=== PATIENT | male | born 1995 | race African-American/Black ===

== ENCOUNTER 2017-06-27 15:24 | Emergency (ER) | payer SELFPAY ==
[2017-06-27 15:46] LABS: Bilirubin Negative (Negative); Blood, Urine Negative (Negative); Glucose, Urine (Dipstick) Negative (Negative); Ketone, Urine Negative (Negative); Nitrite Negative (Negative); Protein, Urine (Dipstick) Negative (Neg-Trace)
[2017-06-27 15:48] LABS: Bacteria/HPF None Seen HPF (None Seen); Hyaline Casts/LPF 7-10 HYALINE CAST LPF (0-3 Hyaline); Squamous Epithelial 0-3 HPF (0-3)
[2017-06-27] MEDS ORDERED: Lidocaine 1% (PF) 30 ML VIAL ONE (16:39)
[2017-06-27] MEDS ORDERED: Azithromycin 250 MG TAB ONE (16:39)
[2017-06-27] MEDS ORDERED: cefTRIAXone\\ROCEPHIN 250 MG VIAL ONE (16:39)
== END 2017-06-27 17:14 | disposition home or self-care (01) ==
LOC: ERS 15:24
DX: N39.0 Urinary tract infection, site not specified (principal); A64 Unspecified sexually transmitted disease
CPT/HCPCS: 81003; 81015; 87491; 87591; 96372; J0696; J2001

== ENCOUNTER 2018-10-21 19:40 | Emergency (ER) | payer SELFPAY ==
[2018-10-21 21:05] LABS: #Basophils 0.1 thou/uL (0.0-0.2); #Eosinphils 0.1 thou/uL (0.0-0.7); #Lymphocytes 1.4 thou/uL (1.20-3.40); #Monocytes 0.5 thou/uL (0.11-0.59); %Eosinophils 1.6 % (0.0-10.0); %Lymphocytes 27.4 % (21.0-51.0); %Monocytes 9.4 % (0.0-10.0); %Neutrophils 60.6 % (42.0-75.0); Hemoglobin 15.4 g/dL (14.0-18.0); Mean Corpuscular HGB CONC 32.8 g/dL (32.0-36.0); Mean Platelet Volume 6.4 fL (7.4-10.4); Platelet Count 231 thou/uL (130-400); RBC Distribution Width 11.9 % (11.5-14.5); Red Blood Cell (RBC) Count 4.67 mill/uL (4.70-6.10); White Blood Cell (WBC) Count 4.9 thou/uL (4.8-10.8)
[2018-10-21 21:24] LABS: Anion Gap 15 mmol/L (10-20); BUN (Urea Nitrogen) 10 mg/dL (8.9-20.6); CK (CPK) 349 U/L (30-200); Calc. Creatinine Clearance 0 mL/min (70-130); Calcium 10.2 mg/dL (7.8-10.44); Carbon Dioxide 27 mmol/L (22-29); Chloride 99 mmol/L (98-107); Estimated GFR-MDRD Greater than 90; Glucose 110 mg/dL (70-105); Potassium 3.6 mmol/L (3.5-5.1); Sodium 137 mmol/L (136-145)
== END 2018-10-21 21:40 | disposition home or self-care (01) ==
LOC: ERS 19:40
DX: F41.9 Anxiety disorder, unspecified (principal); R42 Dizziness and giddiness
CPT/HCPCS: 36415; 80048; 82550; 84443; 85025; 93005

== ENCOUNTER 2020-05-19 12:53 | Emergency (ER) | payer SELFPAY ==
[2020-05-19 13:29] LABS: Bilirubin Negative (Negative); Blood, Urine 1+ (Negative); Clarity Turbid (Clear); Glucose, Urine (Dipstick) Normal (Negative); Ketone, Urine Negative (Negative); Leukocyte 500 Leu/uL (Negative); Nitrite Negative (Negative); Protein, Urine (Dipstick) 30 mg/dL (Neg-Trace); Specific Gravity, Urine 1.019 (1.002-1.036); Squamous Epithelial None Seen HPF (0-3); Urobilinogen Normal mg/dL (Less than 2); WBC/HPF Greater than 50 HPF (0-3)
[2020-05-19 13:38] LABS: Bacteria/HPF None Seen HPF (None Seen); RBC/HPF 0-3 HPF (0-3)
[2020-05-19] MEDS ORDERED: cloNIDine 0.1 MG TAB ONE (14:42)
[2020-05-19] MEDS ORDERED: cefTRIAXone\\ROCEPHIN 250 MG VIAL ONE (14:42)
[2020-05-19] MEDS ORDERED: Lidocaine 1% PF 5 ML VIAL ONE (14:43)
[2020-05-19] MEDS ORDERED: Azithromycin 250 MG TAB ONE (14:56)
[2020-05-23 20:53] LABS: Chlam.trachomatis by PCR,Urine Inconclusive (NotDetected)
== END 2020-05-19 15:22 | disposition home or self-care (01) ==
LOC: ERS 12:53
DX: N34.1 Nonspecific urethritis (principal); F17.210 Nicotine dependence, cigarettes, uncomplicated
CPT/HCPCS: 81003; 81015; 87086; 87491; 87591; 96372; 99283; J0696

== ENCOUNTER 2020-05-25 14:16 | Emergency (ER) | payer SELFPAY ==
[2020-05-25] MEDS ORDERED: Boostrix 0.5 ML VIAL ONE (14:57)
== END 2020-05-25 15:18 | disposition home or self-care (01) ==
LOC: ERS 14:16
DX: S01.21XA Laceration without foreign body of nose, initial encounter (principal); Z23 Encounter for immunization; F17.210 Nicotine dependence, cigarettes, uncomplicated; Y04.0XXA Assault by unarmed brawl or fight, initial encounter
CPT/HCPCS: 90471; 90715

== ENCOUNTER 2021-01-20 09:15 | Emergency (ER) | payer SELFPAY | END 2021-01-20 10:01 | disposition home or self-care (01) | LOC: ERS 09:15 | DX: Z20.2 Contact with and (suspected) exposure to infections with a predominantly sexual mode of transmission (principal); F17.210 Nicotine dependence, cigarettes, uncomplicated | CPT/HCPCS: 99281 ==

== ENCOUNTER 2021-12-16 15:01 | Inpatient (IN) | payer SELFPAY ==
[~2021-12-16 15:01] MED LIST: Iopamidol-370 76% 500 ML 1 ML ONE
[2021-12-16 15:31] LABS: #Eosinphils 0.3 thou/uL (0.0-0.7); #Lymphocytes 1.6 thou/uL (1.20-3.40); #Monocytes 1.2 thou/uL (0.11-0.59); #Neutrophils 7.7 thou/uL (1.40-6.50); %Basophils 0.4 % (0.0-1.0); %Eosinophils 2.8 % (0.0-10.0); %Lymphocytes 14.8 % (21.0-51.0); %Monocytes 10.8 % (0.0-10.0); %Neutrophils 71.2 % (42.0-75.0); Hemoglobin 18.2 g/dL (14.0-18.0); Mean Corpuscular HGB CONC 34.6 g/dL (32.0-36.0); Mean Platelet Volume 7.6 fL (7.4-10.4); Platelet Count 222 thou/uL (130-400); RBC Distribution Width 13.5 % (11.5-14.5); Red Blood Cell (RBC) Count 5.04 mill/uL (4.70-6.10); White Blood Cell (WBC) Count 10.8 thou/uL (4.8-10.8)
[2021-12-16] MEDS ORDERED: Morphine 4 MG/ML VIAL ONE ×2 (16:20→17:27)
[2021-12-16] MEDS ORDERED: Ondansetron PF 4 MG/2 ML Vial ONE (16:20)
[2021-12-16 16:26] LABS: ALT (SGPT) 78 U/L (8-55); AST (SGOT) 77 U/L (5-34); Albumin 5.1 g/dL (3.5-5.0); Alkaline Phosphatase 77 U/L (40-110); Anion Gap 22 mmol/L (10-20); BUN (Urea Nitrogen) 4 mg/dL (8.9-20.6); Bilirubin, Total 1.8 mg/dL (0.2-1.2); Calc. Creatinine Clearance 0 mL/min (70-130); Calcium 10.7 mg/dL (7.8-10.44); Carbon Dioxide 22 mmol/L (22-29); Chloride 93 mmol/L (98-107); Globulin 3.5 g/dL (2.4-3.5); Glucose 106 mg/dL (70-105); Lipase 745 U/L (8-78); Potassium 4.4 mmol/L (3.5-5.1); Protein, Total 8.6 g/dL (6.0-8.3); Sodium 133 mmol/L (136-145)
[2021-12-16 17:04] LABS: Bacteria/HPF None Seen HPF (None Seen); Bilirubin Negative (Negative); Blood, Urine Trace (Negative); Clarity Clear (Clear); Glucose, Urine (Dipstick) Normal (Negative); Ketone, Urine 80 mg/dL (Negative); Leukocyte 75 Leu/uL (Negative); Nitrite Negative (Negative); Protein, Urine (Dipstick) Negative (Neg-Trace); RBC/HPF 0-3 HPF (0-3); Specific Gravity, Urine 1.043 (1.002-1.036); Squamous Epithelial None Seen HPF (0-3); Urobilinogen Normal mg/dL (Less than 2); pH, Urine 6.5 (5.0-9.0)
[2021-12-16] MEDS ORDERED: hydrALAZINE 20 MG/ML VIAL SLOW IVP PRN (19:35)
[2021-12-16] MEDS: Morphine 2 MG/ML VIAL SLOW IVP PRN ×2 (20:05→23:56)
[2021-12-16] MEDS: Sodium Chloride 0.9% 1,000 ML IV SCH (20:12)
[2021-12-16] MEDS: Famotidine/PF 20 mg/2ml Vial SLOW IVP SCH (21:06)
[2021-12-16] MEDS: Nicotine 14 MG PATCH TD SCH (21:06)
[2021-12-16] MEDS: Ondansetron PF 4 MG/2 ML Vial IVP PRN (21:08)
[2021-12-16 21:21] VITALS: BMI 22.3
[2021-12-17] MEDS: cefTRIAXone\\ROCEPHIN 1 GM in Sodium Chloride 0.9% 100 ML IVPB SCH (01:41)
[2021-12-17] MEDS: Morphine 2 MG/ML VIAL SLOW IVP PRN ×5 (04:06→20:32)
[2021-12-17] MEDS: Sodium Chloride 0.9% 1,000 ML IV SCH ×3 (05:00→20:36)
[2021-12-17 06:50] LABS: ALT (SGPT) 52 U/L (8-55); AST (SGOT) 47 U/L (5-34); Albumin 3.9 g/dL (3.5-5.0); Alkaline Phosphatase 59 U/L (40-110); Anion Gap 15 mmol/L (10-20); BUN (Urea Nitrogen) 4 mg/dL (8.9-20.6); BUN/Creatinine Ratio 5.13; Bilirubin, Total 1.1 mg/dL (0.2-1.2); Calc. Creatinine Clearance 153 mL/min (70-130); Calcium 9.1 mg/dL (7.8-10.44); Carbon Dioxide 25 mmol/L (22-29); Chloride 99 mmol/L (98-107); Glucose 91 mg/dL (70-105); Lipase 319 U/L (8-78); Phosphorus 2.7 mg/dL (2.3-4.7); Protein, Total 6.9 g/dL (6.0-8.3); Sodium 135 mmol/L (136-145)
[2021-12-17 08:15] LABS: Cardiac Risk 2.4 (Less than 4.5)
[2021-12-17] MEDS: Enoxaparin Sodium 40 MG/0.4 ML SYRINGE SC SCH (08:21)
[2021-12-17] MEDS: Famotidine/PF 20 mg/2ml Vial SLOW IVP SCH ×2 (08:21→20:31)
[2021-12-17] MEDS: Ondansetron PF 4 MG/2 ML Vial IVP PRN (12:36)
[2021-12-17 16:11] LABS: SARS-CoV-2 PCR by NAA Not Detected (NotDetected)
[2021-12-17] MEDS: Nicotine 14 MG PATCH TD SCH (20:07)
[2021-12-17] MEDS: Lorazepam 2 MG/ML VIAL SLOW IVP PRN (23:48)
[2021-12-18] MEDS: cefTRIAXone\\ROCEPHIN 1 GM in Sodium Chloride 0.9% 100 ML IVPB SCH (01:37)
[2021-12-18] MEDS: Ondansetron PF 4 MG/2 ML Vial IVP PRN (01:40)
[2021-12-18] MEDS: Morphine 2 MG/ML VIAL SLOW IVP PRN ×4 (01:40→20:01)
[2021-12-18] MEDS: Sodium Chloride 0.9% 1,000 ML IV SCH ×2 (05:25→14:19)
[2021-12-18 07:28] LABS: ALT (SGPT) 46 U/L (8-55); AST (SGOT) 58 U/L (5-34); Albumin 3.7 g/dL (3.5-5.0); Alkaline Phosphatase 52 U/L (40-110); Anion Gap 16 mmol/L (10-20); BUN (Urea Nitrogen) Less than 4 mg/dL (8.9-20.6); Bilirubin, Total 0.9 mg/dL (0.2-1.2); Calc. Creatinine Clearance 171 mL/min (70-130); Calcium 9.2 mg/dL (7.8-10.44); Carbon Dioxide 24 mmol/L (22-29); Chloride 100 mmol/L (98-107); Globulin 2.8 g/dL (2.4-3.5); Glucose 86 mg/dL (70-105); Potassium 3.7 mmol/L (3.5-5.1); Protein, Total 6.5 g/dL (6.0-8.3); Sodium 136 mmol/L (136-145)
[2021-12-18] MEDS: Famotidine/PF 20 mg/2ml Vial SLOW IVP SCH ×2 (08:00→20:01)
[2021-12-18] MEDS: Enoxaparin Sodium 40 MG/0.4 ML SYRINGE SC SCH (08:00)
[2021-12-18 08:21] LABS: #Eosinphils 0.5 thou/uL (0.0-0.7); #Lymphocytes 1.8 thou/uL (1.20-3.40); #Monocytes 0.7 thou/uL (0.11-0.59); %Basophils 0.3 % (0.0-1.0); %Eosinophils 7.7 % (0.0-10.0); %Lymphocytes 29.7 % (21.0-51.0); %Monocytes 11.8 % (0.0-10.0); %Neutrophils 50.5 % (42.0-75.0); Hemoglobin 13.9 g/dL (14.0-18.0); Mean Corpuscular HGB CONC 32.7 g/dL (32.0-36.0); Mean Corpuscular Hemoglobin 34.8 pg (27.0-31.0); Mean Platelet Volume 6.6 fL (7.4-10.4); Platelet Count 199 thou/uL (130-400); RBC Distribution Width 12.7 % (11.5-14.5); Red Blood Cell (RBC) Count 3.99 mill/uL (4.70-6.10); White Blood Cell (WBC) Count 5.9 thou/uL (4.8-10.8)
[2021-12-18 08:39] LABS: MDiff Complete? YES; Macrocytosis SLIGHT = 6-15 cells (100X) (0-5/hpf); Platelet Morphology Comment Appears Adequate
[2021-12-18] MEDS: Nicotine 14 MG PATCH TD SCH (20:02)
[2021-12-18] MEDS: Lorazepam 2 MG/ML VIAL SLOW IVP PRN (21:33)
[2021-12-19] MEDS: Sodium Chloride 0.9% 1,000 ML IV SCH ×2 (01:08→09:17)
[2021-12-19] MEDS: cefTRIAXone\\ROCEPHIN 1 GM in Sodium Chloride 0.9% 100 ML IVPB SCH (01:08)
[2021-12-19] MEDS: Morphine 2 MG/ML VIAL SLOW IVP PRN (01:10)
[2021-12-19] MEDS: Lorazepam 2 MG/ML VIAL SLOW IVP PRN (03:33)
[2021-12-19 07:37] VITALS: BP 132/82; TEMP 98
[2021-12-19 08:18] LABS: #Basophils 0.1 thou/uL (0.0-0.2); #Eosinphils 0.4 thou/uL (0.0-0.7); #Lymphocytes 1.5 thou/uL (1.20-3.40); #Monocytes 0.7 thou/uL (0.11-0.59); #Neutrophils 2.1 thou/uL (1.40-6.50); %Basophils 1.3 % (0.0-1.0); %Lymphocytes 30.9 % (21.0-51.0); %Monocytes 14.5 % (0.0-10.0); %Neutrophils 45.3 % (42.0-75.0); Hemoglobin 13.7 g/dL (14.0-18.0); Mean Corpuscular HGB CONC 33.3 g/dL (32.0-36.0); Mean Corpuscular Hemoglobin 35.1 pg (27.0-31.0); Mean Platelet Volume 6.6 fL (7.4-10.4); Platelet Count 237 thou/uL (130-400); RBC Distribution Width 12.7 % (11.5-14.5); Red Blood Cell (RBC) Count 3.91 mill/uL (4.70-6.10); White Blood Cell (WBC) Count 4.7 thou/uL (4.8-10.8)
[2021-12-19 08:37] LABS: ALT (SGPT) 68 U/L (8-55); AST (SGOT) 98 U/L (5-34); Albumin 3.6 g/dL (3.5-5.0); Alkaline Phosphatase 51 U/L (40-110); Anion Gap 14 mmol/L (10-20); BUN (Urea Nitrogen) 4 mg/dL (8.9-20.6); Bilirubin, Total 0.7 mg/dL (0.2-1.2); Calc. Creatinine Clearance 171 mL/min (70-130); Calcium 8.9 mg/dL (7.8-10.44); Carbon Dioxide 24 mmol/L (22-29); Chloride 102 mmol/L (98-107); Globulin 2.7 g/dL (2.4-3.5); Glucose 103 mg/dL (70-105); Potassium 3.4 mmol/L (3.5-5.1); Protein, Total 6.3 g/dL (6.0-8.3); Sodium 137 mmol/L (136-145)
[2021-12-19] MEDS: Famotidine/PF 20 mg/2ml Vial SLOW IVP SCH (08:54)
[2021-12-19] MEDS: Enoxaparin Sodium 40 MG/0.4 ML SYRINGE SC SCH (08:54)
[2021-12-19] MEDS ORDERED: Electrolyte Replacement Protocol 1 EACH FS SCH (09:00)
[2021-12-19] MEDS ORDERED: Potassium Chloride 20 MEQ TAB PO SCH (09:15)
[2021-12-19 10:18] LABS: Lipase 82 U/L (8-78); Magnesium 1.9 mg/dL (1.6-2.6)
[2021-12-19] MEDS ORDERED: Magnesium 2 GM/50 ML(in water) 2 GM in Premix Bag 1 BAG IVPB SCH (10:30)
== END 2021-12-19 14:53 | disposition home or self-care (01) | DRG 439 ==
LOC: ERS 15:01 → T4-A 18:32
PROVIDERS: ADMIT Internal Medicine; ATTEND Internal Medicine
DX: K85.20 Alcohol induced acute pancreatitis without necrosis or infection (principal); E87.1 Hypo-osmolality and hyponatremia; N30.00 Acute cystitis without hematuria; F17.210 Nicotine dependence, cigarettes, uncomplicated; F10.10 Alcohol abuse, uncomplicated; E83.52 Hypercalcemia; E86.0 Dehydration; Z20.822 Contact with and (suspected) exposure to COVID-19; Z98.890 Other specified postprocedural states
CPT/HCPCS: 36415; 71045; 74177; 80053; 80061; 80069; 81003; 81015; 83690; 83735; 85025; 96374; 96375; 96376; J0696; J1650; J2060; J2270; J2405; J3475; J3490; J7050; Q9967; S0028; U0003; U0005

== ENCOUNTER 2021-12-21 03:52 | Emergency (ER) | payer SELFPAY ==
[2021-12-21 05:18] LABS: #Basophils 0.1 thou/uL (0.0-0.2); #Eosinphils 0.2 thou/uL (0.0-0.7); #Lymphocytes 1.8 thou/uL (1.20-3.40); #Monocytes 0.6 thou/uL (0.11-0.59); #Neutrophils 1.9 thou/uL (1.40-6.50); %Basophils 1.4 % (0.0-1.0); %Eosinophils 5.3 % (0.0-10.0); %Lymphocytes 39.1 % (21.0-51.0); %Monocytes 11.9 % (0.0-10.0); %Neutrophils 42.3 % (42.0-75.0); Hemoglobin 14.8 g/dL (14.0-18.0); Mean Corpuscular HGB CONC 33.7 g/dL (32.0-36.0); Mean Corpuscular Hemoglobin 34.8 pg (27.0-31.0); Mean Platelet Volume 6.2 fL (7.4-10.4); Platelet Count 287 thou/uL (130-400); RBC Distribution Width 12.5 % (11.5-14.5); Red Blood Cell (RBC) Count 4.26 mill/uL (4.70-6.10); White Blood Cell (WBC) Count 4.6 thou/uL (4.8-10.8)
[2021-12-21 05:38] LABS: ALT (SGPT) 141 U/L (8-55); AST (SGOT) 154 U/L (5-34); Alkaline Phosphatase 49 U/L (40-110); Anion Gap 12 mmol/L (10-20); BUN (Urea Nitrogen) Less than 4 mg/dL (8.9-20.6); Bilirubin, Total 0.6 mg/dL (0.2-1.2); Calc. Creatinine Clearance 0 mL/min (70-130); Calcium 9.3 mg/dL (7.8-10.44); Carbon Dioxide 25 mmol/L (22-29); Chloride 104 mmol/L (98-107); Globulin 2.9 g/dL (2.4-3.5); Glucose 99 mg/dL (70-105); Lipase 118 U/L (8-78); Potassium 3.6 mmol/L (3.5-5.1); Protein, Total 6.9 g/dL (6.0-8.3); Sodium 137 mmol/L (136-145)
== END 2021-12-21 06:00 | disposition home or self-care (01) ==
LOC: ERS 03:52
DX: R55 Syncope and collapse (principal); F17.210 Nicotine dependence, cigarettes, uncomplicated
CPT/HCPCS: 36415; 80053; 83690; 85025; 93005

== ENCOUNTER 2021-12-21 17:32 | Emergency (ER) | payer SELFPAY ==
[2021-12-21] MEDS ORDERED: Ondansetron PF 4 MG/2 ML Vial ONE (17:51)
[2021-12-21 18:35] LABS: #Eosinphils 0.2 thou/uL (0.0-0.7); #Lymphocytes 1.9 thou/uL (1.20-3.40); #Monocytes 0.7 thou/uL (0.11-0.59); #Neutrophils 2.4 thou/uL (1.40-6.50); %Basophils 0.9 % (0.0-1.0); %Eosinophils 3.4 % (0.0-10.0); %Lymphocytes 35.7 % (21.0-51.0); Hemoglobin 14.4 g/dL (14.0-18.0); Mean Corpuscular HGB CONC 32.8 g/dL (32.0-36.0); Mean Corpuscular Hemoglobin 34.2 pg (27.0-31.0); Mean Platelet Volume 6.6 fL (7.4-10.4); Platelet Count 286 thou/uL (130-400); RBC Distribution Width 12.6 % (11.5-14.5); Red Blood Cell (RBC) Count 4.22 mill/uL (4.70-6.10); White Blood Cell (WBC) Count 5.2 thou/uL (4.8-10.8)
[2021-12-21 18:59] LABS: ALT (SGPT) 148 U/L (8-55); AST (SGOT) 134 U/L (5-34); Albumin 4.2 g/dL (3.5-5.0); Alkaline Phosphatase 48 U/L (40-110); Anion Gap 16 mmol/L (10-20); BUN (Urea Nitrogen) 4 mg/dL (8.9-20.6); Bilirubin, Total 0.7 mg/dL (0.2-1.2); CK (CPK) 247 U/L (30-200); Calc. Creatinine Clearance 0 mL/min (70-130); Calcium 9.5 mg/dL (7.8-10.44); Carbon Dioxide 21 mmol/L (22-29); Chloride 107 mmol/L (98-107); Globulin 2.7 g/dL (2.4-3.5); Glucose 89 mg/dL (70-105); Lipase 94 U/L (8-78); Protein, Total 6.9 g/dL (6.0-8.3); Sodium 140 mmol/L (136-145)
== END 2021-12-21 20:20 | disposition home or self-care (01) ==
LOC: ERS 17:32
DX: R55 Syncope and collapse (principal); F17.210 Nicotine dependence, cigarettes, uncomplicated
CPT/HCPCS: 36415; 82550; 83690; 83735; 84484; 93005; 96361; 96374; J2405

== ENCOUNTER 2022-01-27 18:11 | Inpatient (IN) | payer SELFPAY ==
[2022-01-27 18:50] LABS: #Basophils 0.1 thou/uL (0.0-0.2); #Eosinphils 0.1 thou/uL (0.0-0.7); #Lymphocytes 2.9 thou/uL (1.20-3.40); #Neutrophils 5.9 thou/uL (1.40-6.50); %Eosinophils 1.1 % (0.0-10.0); %Lymphocytes 28.9 % (21.0-51.0); %Monocytes 9.9 % (0.0-10.0); %Neutrophils 59.1 % (42.0-75.0); Hemoglobin 16.3 g/dL (14.0-18.0); Mean Corpuscular HGB CONC 34.4 g/dL (32.0-36.0); Mean Corpuscular Hemoglobin 33.2 pg (27.0-31.0); Mean Corpuscular Volume 96.4 fL (78.0-98.0); Mean Platelet Volume 5.9 fL (7.4-10.4); Platelet Count 269 thou/uL (130-400); RBC Distribution Width 12.3 % (11.5-14.5); Red Blood Cell (RBC) Count 4.92 mill/uL (4.70-6.10); White Blood Cell (WBC) Count 9.9 thou/uL (4.8-10.8)
[2022-01-27 19:23] LABS: ALT (SGPT) 26 U/L (8-55); AST (SGOT) 46 U/L (5-34); Albumin 4.1 g/dL (3.5-5.0); Alkaline Phosphatase 64 U/L (40-110); Anion Gap 18 mmol/L (10-20); BUN (Urea Nitrogen) 11 mg/dL (8.9-20.6); Calc. Creatinine Clearance 0 mL/min (70-130); Calcium 9.2 mg/dL (7.8-10.44); Carbon Dioxide 24 mmol/L (22-29); Chloride 99 mmol/L (98-107); Globulin 2.8 g/dL (2.4-3.5); Glucose 87 mg/dL (70-105); Lipase 356 U/L (8-78); Potassium 3.9 mmol/L (3.5-5.1); Protein, Total 6.9 g/dL (6.0-8.3); Sodium 137 mmol/L (136-145)
[2022-01-27] MEDS ORDERED: Morphine 4 MG/ML VIAL ONE (20:34)
[2022-01-27] MEDS ORDERED: Pantoprazole 40 MG VIAL ONE (20:35)
[2022-01-27] MEDS ORDERED: Ondansetron PF 4 MG/2 ML Vial ONE (20:35)
[2022-01-27 20:43] LABS: Bacteria/HPF None Seen HPF (None Seen); Bilirubin Negative (Negative); Blood, Urine Trace (Negative); Clarity Clear (Clear); Glucose, Urine (Dipstick) Normal (Negative); Ketone, Urine 20 mg/dL (Negative); Leukocyte Negative Leu/uL (Negative); Nitrite Negative (Negative); Protein, Urine (Dipstick) 30 mg/dL (Neg-Trace); RBC/HPF 0-3 HPF (0-3); Specific Gravity, Urine 1.039 (1.002-1.036); Sperm/HPF Rare HPF (None Seen); Squamous Epithelial None Seen HPF (0-3); Urobilinogen Normal mg/dL (Less than 2); WBC/HPF 0-3 HPF (0-3)
[2022-01-27] MEDS ORDERED: hydrALAZINE 20 MG/ML VIAL SLOW IVP PRN (22:05)
[2022-01-27] MEDS ORDERED: Ondansetron PF 4 MG/2 ML Vial IVP PRN (22:07)
[2022-01-27] MEDS ORDERED: Zolpidem Tartrate 5 MG TAB PO PRN (22:07)
[2022-01-27 22:48] VITALS: BMI 21.4
[2022-01-27] MEDS: Morphine 2 MG/ML VIAL SLOW IVP PRN (22:55)
[2022-01-27] MEDS: Nicotine 21 MG PATCH TD SCH (22:56)
[2022-01-27] MEDS: Dextrose 5 % And 0.9 % NaCl 1,000 ML IV SCH (23:06)
[2022-01-28] MEDS: Morphine 2 MG/ML VIAL SLOW IVP PRN ×8 (01:47→22:24)
[2022-01-28] MEDS ORDERED: HYDROcodone/Acetaminophen 10/325 mg Tablet PO SCH (02:30)
[2022-01-28 02:32] LABS: SARS-CoV-2 NAA Rapid Test Not Detected (NotDetected)
[2022-01-28 06:26] LABS: #Eosinphils 0.2 thou/uL (0.0-0.7); #Lymphocytes 1.3 thou/uL (1.20-3.40); #Monocytes 0.9 thou/uL (0.11-0.59); #Neutrophils 4.9 thou/uL (1.40-6.50); %Basophils 0.3 % (0.0-1.0); %Eosinophils 2.6 % (0.0-10.0); %Lymphocytes 17.7 % (21.0-51.0); %Monocytes 12.5 % (0.0-10.0); %Neutrophils 66.9 % (42.0-75.0); Hemoglobin 13.8 g/dL (14.0-18.0); Mean Corpuscular HGB CONC 34.7 g/dL (32.0-36.0); Mean Corpuscular Hemoglobin 33.6 pg (27.0-31.0); Mean Corpuscular Volume 96.8 fL (78.0-98.0); Platelet Count 217 thou/uL (130-400); White Blood Cell (WBC) Count 7.4 thou/uL (4.8-10.8)
[2022-01-28 06:41] LABS: ALT (SGPT) 19 U/L (8-55); AST (SGOT) 31 U/L (5-34); Albumin 3.2 g/dL (3.5-5.0); Alkaline Phosphatase 55 U/L (40-110); Anion Gap 11 mmol/L (10-20); BUN (Urea Nitrogen) 5 mg/dL (8.9-20.6); Bilirubin, Total 0.8 mg/dL (0.2-1.2); Calc. Creatinine Clearance 141 mL/min (70-130); Carbon Dioxide 24 mmol/L (22-29); Chloride 104 mmol/L (98-107); Globulin 2.3 g/dL (2.4-3.5); Glucose 116 mg/dL (70-105); Lipase 259 U/L (8-78); Potassium 3.5 mmol/L (3.5-5.1); Protein, Total 5.5 g/dL (6.0-8.3); Sodium 135 mmol/L (136-145)
[2022-01-28] MEDS: Enoxaparin Sodium 30 MG/0.3 ML SYRINGE SC SCH (07:57)
[2022-01-28] MEDS: Dextrose 5 % And 0.9 % NaCl 1,000 ML IV SCH ×2 (07:59→14:05)
[2022-01-28] MEDS ORDERED: Famotidine/PF 20 mg/2ml Vial SLOW IVP SCH (09:00)
[2022-01-28] MEDS: Lorazepam 2 MG/ML VIAL SLOW IVP PRN ×2 (10:16→23:15)
[2022-01-28] MEDS: Famotidine 40 MG/4 ML VIAL SLOW IVP SCH ×2 (10:22→20:04)
[2022-01-28] MEDS: Thiamine HCl 200 MG/2 ML VIAL SLOW IVP SCH (16:52)
[2022-01-28] MEDS: Lactated Ringer's 1,000 ML IV SCH ×2 (16:52→22:26)
[2022-01-28] MEDS: Nicotine 21 MG PATCH TD SCH (23:11)
[2022-01-29] MEDS: Morphine 2 MG/ML VIAL SLOW IVP PRN ×7 (02:25→22:47)
[2022-01-29] MEDS: Lactated Ringer's 1,000 ML IV SCH ×4 (04:03→23:28)
[2022-01-29 06:34] LABS: #Eosinphils 0.2 thou/uL (0.0-0.7); #Lymphocytes 1.3 thou/uL (1.20-3.40); #Monocytes 0.7 thou/uL (0.11-0.59); #Neutrophils 2.7 thou/uL (1.40-6.50); %Basophils 0.2 % (0.0-1.0); %Eosinophils 4.5 % (0.0-10.0); %Monocytes 14.8 % (0.0-10.0); %Neutrophils 54.5 % (42.0-75.0); Mean Corpuscular HGB CONC 32.3 g/dL (32.0-36.0); Mean Corpuscular Hemoglobin 32.9 pg (27.0-31.0); Mean Platelet Volume 6.6 fL (7.4-10.4); Platelet Count 192 thou/uL (130-400); Red Blood Cell (RBC) Count 4.26 mill/uL (4.70-6.10)
[2022-01-29 06:42] LABS: Anion Gap 11 mmol/L (10-20); BUN (Urea Nitrogen) Less than 4 mg/dL (8.9-20.6); Calc. Creatinine Clearance 143 mL/min (70-130); Calcium 8.3 mg/dL (7.8-10.44); Carbon Dioxide 27 mmol/L (22-29); Chloride 101 mmol/L (98-107); Glucose 90 mg/dL (70-105); Lipase 95 U/L (8-78); Potassium 3.3 mmol/L (3.5-5.1); Sodium 136 mmol/L (136-145)
[2022-01-29] MEDS ORDERED: Potassium Chloride 20 MEQ in Premix Bag 1 BAG IVPB SCH (07:45)
[2022-01-29] MEDS: Enoxaparin Sodium 30 MG/0.3 ML SYRINGE SC SCH (08:44)
[2022-01-29] MEDS: Famotidine 40 MG/4 ML VIAL SLOW IVP SCH ×2 (13:29→20:52)
[2022-01-29] MEDS: Thiamine HCl 200 MG/2 ML VIAL SLOW IVP SCH (16:45)
[2022-01-29] MEDS: Nicotine 21 MG PATCH TD SCH (22:54)
[2022-01-29] MEDS: Lorazepam 2 MG/ML VIAL SLOW IVP PRN (23:29)
[2022-01-30] MEDS: Morphine 2 MG/ML VIAL SLOW IVP PRN ×6 (03:19→22:01)
[2022-01-30] MEDS: Lactated Ringer's 1,000 ML IV SCH ×4 (03:37→22:00)
[2022-01-30 07:39] LABS: Anion Gap 11 mmol/L (10-20); BUN (Urea Nitrogen) Less than 4 mg/dL (8.9-20.6); Calc. Creatinine Clearance 153 mL/min (70-130); Calcium 8.7 mg/dL (7.8-10.44); Carbon Dioxide 28 mmol/L (22-29); Chloride 102 mmol/L (98-107); Glucose 98 mg/dL (70-105); Lipase 43 U/L (8-78); Potassium 3.3 mmol/L (3.5-5.1); Sodium 138 mmol/L (136-145)
[2022-01-30] MEDS ORDERED: Potassium Chloride 20 MEQ TAB PO SCH (08:00)
[2022-01-30] MEDS: Enoxaparin Sodium 30 MG/0.3 ML SYRINGE SC SCH (08:41)
[2022-01-30] MEDS: Famotidine 40 MG/4 ML VIAL SLOW IVP SCH ×2 (09:58→22:02)
[2022-01-30] MEDS: Thiamine HCl 200 MG/2 ML VIAL SLOW IVP SCH (17:16)
[2022-01-31] MEDS: Nicotine 21 MG PATCH TD SCH (01:00)
[2022-01-31] MEDS: Lactated Ringer's 1,000 ML IV SCH ×4 (03:00→22:24)
[2022-01-31] MEDS: Morphine 2 MG/ML VIAL SLOW IVP PRN ×5 (03:34→22:02)
[2022-01-31 07:33] LABS: Anion Gap 12 mmol/L (10-20); BUN (Urea Nitrogen) Less than 4 mg/dL (8.9-20.6); Calc. Creatinine Clearance 145 mL/min (70-130); Calcium 9.2 mg/dL (7.8-10.44); Carbon Dioxide 28 mmol/L (22-29); Chloride 102 mmol/L (98-107); Glucose 102 mg/dL (70-105); Potassium 3.7 mmol/L (3.5-5.1); Sodium 138 mmol/L (136-145)
[2022-01-31] MEDS: Enoxaparin Sodium 40 MG/0.4 ML SYRINGE SC SCH (08:37)
[2022-01-31] MEDS: Famotidine 40 MG/4 ML VIAL SLOW IVP SCH ×2 (08:38→22:04)
[2022-01-31 17:11] LABS: ALT (SGPT) 18 U/L (8-55); AST (SGOT) 33 U/L (5-34); Albumin 3.5 g/dL (3.5-5.0); Alkaline Phosphatase 53 U/L (40-110); Bilirubin, Direct 0.1 mg/dL (0.1-0.3); Bilirubin, Total 0.4 mg/dL (0.2-1.2); Lipase 41 U/L (8-78); Protein, Total 6.7 g/dL (6.0-8.3)
[2022-01-31] MEDS: Thiamine HCl 200 MG/2 ML VIAL SLOW IVP SCH (17:12)
[2022-02-01] MEDS: Nicotine 21 MG PATCH TD SCH (02:30)
[2022-02-01 06:08] LABS: ALT (SGPT) 17 U/L (8-55); AST (SGOT) 24 U/L (5-34); Albumin 3.2 g/dL (3.5-5.0); Alkaline Phosphatase 46 U/L (40-110); Anion Gap 11 mmol/L (10-20); BUN (Urea Nitrogen) Less than 4 mg/dL (8.9-20.6); Bilirubin, Direct 0.2 mg/dL (0.1-0.3); Bilirubin, Total 0.4 mg/dL (0.2-1.2); Calc. Creatinine Clearance 141 mL/min (70-130); Calcium 9.2 mg/dL (7.8-10.44); Carbon Dioxide 28 mmol/L (22-29); Chloride 103 mmol/L (98-107); Glucose 107 mg/dL (70-105); Lipase 37 U/L (8-78); Potassium 3.5 mmol/L (3.5-5.1); Protein, Total 5.9 g/dL (6.0-8.3); Sodium 138 mmol/L (136-145)
[2022-02-01 06:12] LABS: Hemoglobin 13.7 g/dL (14.0-18.0); Mean Corpuscular HGB CONC 34.1 g/dL (32.0-36.0); Mean Corpuscular Hemoglobin 33.8 pg (27.0-31.0); Mean Corpuscular Volume 99.1 fL (78.0-98.0); Mean Platelet Volume 5.9 fL (7.4-10.4); Platelet Count 241 thou/uL (130-400); RBC Distribution Width 12.2 % (11.5-14.5); Red Blood Cell (RBC) Count 4.04 mill/uL (4.70-6.10); White Blood Cell (WBC) Count 4.4 thou/uL (4.8-10.8)
[2022-02-01 06:41] LABS: Eosinophils 5 % (0-10); Lymphocytes 49 % (21-51); MDiff Complete? YES; Monocytes 10 % (0-10); Neutrophil 30 % (42-75); Reactive Lymphocytes 5 % (0-10)
[2022-02-01] MEDS: Lactated Ringer's 1,000 ML IV SCH ×3 (09:56→17:52)
[2022-02-01] MEDS: Famotidine 40 MG/4 ML VIAL SLOW IVP SCH (09:56)
[2022-02-01] MEDS: Enoxaparin Sodium 40 MG/0.4 ML SYRINGE SC SCH (09:56)
[2022-02-01] MEDS: Morphine 2 MG/ML VIAL SLOW IVP PRN ×2 (09:56→14:16)
[2022-02-01 15:49] VITALS: BP 126/70; TEMP 98.8
[2022-02-01] MEDS: Thiamine HCl 200 MG/2 ML VIAL SLOW IVP SCH (17:52)
== END 2022-02-01 18:45 | disposition home or self-care (01) | DRG 440 ==
LOC: ERS 18:11 → SURG B 21:16 → OBSVTOIN 01-28 18:08
PROVIDERS: ADMIT Internal Medicine; ATTEND Internal Medicine
DX: K85.20 Alcohol induced acute pancreatitis without necrosis or infection (principal); Z20.822 Contact with and (suspected) exposure to COVID-19; F10.10 Alcohol abuse, uncomplicated; F17.210 Nicotine dependence, cigarettes, uncomplicated; Z79.899 Other long term (current) drug therapy; Z82.49 Family history of ischemic heart disease and other diseases of the circulatory system
CPT/HCPCS: 36415; 36416; 74177; 76705; 80048; 80053; 80076; 81003; 81015; 83690; 84484; 85025; 96361; 96374; 96375; C9113; J1650; J2060; J2270; J2405; J3411; J3480; J7042; J7120; Q9967; U0002

== ENCOUNTER 2022-03-06 12:26 | Emergency (ER) | payer SELFPAY ==
[2022-03-06] MEDS ORDERED: Ondansetron PF 4 MG/2 ML Vial ONE (14:13)
[2022-03-06] MEDS ORDERED: Ketorolac Tromethamine 30 MG/ML VIAL ONE (14:13)
[2022-03-06] MEDS ORDERED: Lidocaine 1% w/Epinephrine 1:100K 20 ML VIAL ONE (14:23)
[2022-03-06 14:24] LABS: #Eosinphils 0.2 thou/uL (0.0-0.7); #Lymphocytes 1.6 thou/uL (1.20-3.40); #Monocytes 0.7 thou/uL (0.11-0.59); #Neutrophils 3.3 thou/uL (1.40-6.50); %Basophils 0.2 % (0.0-1.0); %Lymphocytes 27.2 % (21.0-51.0); %Monocytes 12.1 % (0.0-10.0); %Neutrophils 56.4 % (42.0-75.0); Hemoglobin 14.2 g/dL (14.0-18.0); Mean Corpuscular HGB CONC 32.3 g/dL (32.0-36.0); Mean Corpuscular Hemoglobin 32.9 pg (27.0-31.0); Mean Platelet Volume 6.3 fL (7.4-10.4); Platelet Count 356 thou/uL (130-400); RBC Distribution Width 11.7 % (11.5-14.5); Red Blood Cell (RBC) Count 4.31 mill/uL (4.70-6.10); White Blood Cell (WBC) Count 5.8 thou/uL (4.8-10.8)
[2022-03-06 14:45] LABS: ALT (SGPT) 18 U/L (8-55); AST (SGOT) 22 U/L (5-34); Albumin 3.9 g/dL (3.5-5.0); Alkaline Phosphatase 45 U/L (40-110); Anion Gap 13 mmol/L (10-20); BUN (Urea Nitrogen) 7 mg/dL (8.9-20.6); Bilirubin, Total 0.4 mg/dL (0.2-1.2); CK (CPK) 227 U/L (30-200); Calc. Creatinine Clearance 0 mL/min (70-130); Carbon Dioxide 29 mmol/L (22-29); Chloride 103 mmol/L (98-107); Estimated GFR 125; Globulin 3.8 g/dL (2.4-3.5); Glucose 80 mg/dL (70-105); Lipase 24 U/L (8-78); Potassium 4.5 mmol/L (3.5-5.1); Protein, Total 7.7 g/dL (6.0-8.3); Sodium 140 mmol/L (136-145)
[2022-03-06] MEDS ORDERED: Clindamycin/D5W 900 mg/50 ml Premix Bag ONE (14:47)
[2022-03-06] MEDS ORDERED: Iopamidol-370 76% 500 ML 1 ML ONE (15:47)
== END 2022-03-06 16:00 | disposition home or self-care (01) ==
LOC: ERS 12:26
DX: L02.214 Cutaneous abscess of groin (principal); F17.210 Nicotine dependence, cigarettes, uncomplicated
CPT/HCPCS: 10060; 36415; 74177; 80053; 82550; 83690; 85025; 96374; 96375; J1885; J2405; J3490; Q9967

== ENCOUNTER 2022-10-03 16:58 | Inpatient (IN) | payer BC, SELFPAY ==
[2022-10-03] MEDS ORDERED: Morphine 4 MG/ML VIAL ONE ×3 (17:33→22:50)
[2022-10-03 17:54] LABS: #Eosinphils 0.2 thou/uL (0.0-0.7); #Lymphocytes 1.1 thou/uL (1.20-3.40); #Monocytes 0.7 thou/uL (0.11-0.59); #Neutrophils 5.8 thou/uL (1.40-6.50); %Basophils 0.6 % (0.0-1.0); %Eosinophils 2.4 % (0.0-10.0); %Lymphocytes 14.1 % (21.0-51.0); %Monocytes 8.4 % (0.0-10.0); %Neutrophils 74.5 % (42.0-75.0); Hemoglobin 17.2 g/dL (14.0-18.0); Mean Corpuscular HGB CONC 34.5 g/dL (32.0-36.0); Mean Corpuscular Volume 98.6 fl (78.0-98.0); Mean Platelet Volume 6.9 fL (7.4-10.4); Platelet Count 225 10x3/uL (130-400); RBC Distribution Width 12.3 % (11.5-14.5); Red Blood Cell (RBC) Count 5.04 mill/uL (4.70-6.10); White Blood Cell (WBC) Count 7.8 10x3/uL (4.8-10.8)
[2022-10-03 18:21] LABS: ALT (SGPT) 49 U/L (8-55); AST (SGOT) 50 U/L (5-34); Albumin 4.3 g/dL (3.5-5.0); Alkaline Phosphatase 73 U/L (40-110); Anion Gap 19 mmol/L (10-20); BUN (Urea Nitrogen) 8 mg/dL (8.9-20.6); Calc. Creatinine Clearance 0 mL/min (70-130); Calcium 9.7 mg/dL (7.8-10.44); Carbon Dioxide 19 mmol/L (22-29); Chloride 100 mmol/L (98-107); Estimated GFR 122; Globulin 3.3 g/dL (2.4-3.5); Glucose 70 mg/dL (70-105); Lipase 503 U/L (8-78); Potassium 3.4 mmol/L (3.5-5.1); Protein, Total 7.6 g/dL (6.0-8.3); Sodium 135 mmol/L (136-145)
[2022-10-03 18:51] LABS: Bilirubin Negative (Negative); Blood, Urine Negative (Negative); Clarity Clear (Clear); Glucose, Urine (Dipstick) Normal (Negative); Ketone, Urine 100 mg/dL (Negative); Leukocyte Negative Leu/uL (Negative); Nitrite Negative (Negative); Protein, Urine (Dipstick) 20 mg/dL (Neg-Trace); Specific Gravity, Urine 1.029 (1.002-1.036); Urobilinogen Normal mg/dL (Less than 2)
[2022-10-03] MEDS ORDERED: Sodium Chloride 0.9% 1,000 ML IV SCH (19:00)
[2022-10-03] MEDS ORDERED: Potassium Chloride 20 MEQ in Lactated Ringer's 1,000 ML IV SCH (20:15)
[2022-10-03] MEDS: Morphine 4 MG/ML VIAL SLOW IVP PRN ×2 (20:17→22:58)
[2022-10-03] MEDS ORDERED: Lorazepam 2 MG/ML VIAL IM PRN (20:51)
[2022-10-03] MEDS ORDERED: Lorazepam 1 MG TAB PO SCH (21:00)
[2022-10-03] MEDS ORDERED: Electrolyte Replacement Protocol 1 EACH FS SCH (21:00)
[2022-10-03] MEDS ORDERED: Lorazepam 1 MG TAB ONE (21:16)
[2022-10-03] MEDS: Thiamine HCl 200 MG/2 ML VIAL SLOW IVP SCH (21:28)
[2022-10-03] MEDS: Potassium Chloride 20 MEQ in Lactated Ringer's 1,000 ML IV SCH (21:44)
[2022-10-03] MEDS ORDERED: Acetaminophen 500 MG TAB ONE (22:51)
[2022-10-03] MEDS: Acetaminophen 500 MG TAB PO SCH (22:57)
[2022-10-03] MEDS ORDERED: Potassium Chloride 20 MEQ TAB PO SCH (23:00)
[2022-10-04] MEDS ORDERED: Morphine 2 MG/ML VIAL SLOW IVP SCH (00:30)
[2022-10-04] MEDS ORDERED: Morphine 4 MG/ML VIAL ONE ×4 (00:51→11:42)
[2022-10-04] MEDS: Morphine 4 MG/ML VIAL SLOW IVP PRN ×8 (00:58→23:12)
[2022-10-04] MEDS ORDERED: Potassium Chloride 20 MEQ TAB ONE (02:51)
[2022-10-04] MEDS ORDERED: Morphine 2 MG/ML VIAL ONE (02:55)
[2022-10-04 04:53] LABS: Anion Gap 14 mmol/L (10-20); BUN (Urea Nitrogen) 5 mg/dL (8.9-20.6); Calc. Creatinine Clearance 0 mL/min (70-130); Calcium 9.1 mg/dL (7.8-10.44); Carbon Dioxide 22 mmol/L (22-29); Chloride 102 mmol/L (98-107); Estimated GFR 126; Glucose 86 mg/dL (70-105); Potassium 4.2 mmol/L (3.5-5.1); Sodium 134 mmol/L (136-145)
[2022-10-04 04:55] LABS: #Eosinphils 0.3 thou/uL (0.0-0.7); #Monocytes 0.6 thou/uL (0.11-0.59); #Neutrophils 5.5 thou/uL (1.40-6.50); %Basophils 0.4 % (0.0-1.0); %Eosinophils 3.7 % (0.0-10.0); %Lymphocytes 13.5 % (21.0-51.0); %Monocytes 7.6 % (0.0-10.0); %Neutrophils 74.7 % (42.0-75.0); Hemoglobin 15.6 g/dL (14.0-18.0); Mean Corpuscular HGB CONC 33.5 g/dL (32.0-36.0); Mean Corpuscular Hemoglobin 33.4 pg (27.0-31.0); Mean Corpuscular Volume 99.7 fl (78.0-98.0); Mean Platelet Volume 7.7 fL (7.4-10.4); Platelet Count 129 10x3/uL (130-400); RBC Distribution Width 12.4 % (11.5-14.5); Red Blood Cell (RBC) Count 4.66 mill/uL (4.70-6.10); White Blood Cell (WBC) Count 7.3 10x3/uL (4.8-10.8)
[2022-10-04 04:56] LABS: ALT (SGPT) 36 U/L (8-55); AST (SGOT) 42 U/L (5-34); Albumin 3.6 g/dL (3.5-5.0); Alkaline Phosphatase 64 U/L (40-110); Anion Gap 17 mmol/L (10-20); BUN (Urea Nitrogen) 5 mg/dL (8.9-20.6); Bilirubin, Total 1.3 mg/dL (0.2-1.2); Calc. Creatinine Clearance 0 mL/min (70-130); Calcium 9.2 mg/dL (7.8-10.44); Carbon Dioxide 19 mmol/L (22-29); Chloride 102 mmol/L (98-107); Estimated GFR 126; Globulin 3.2 g/dL (2.4-3.5); Glucose 89 mg/dL (70-105); Potassium 4.4 mmol/L (3.5-5.1); Protein, Total 6.8 g/dL (6.0-8.3); Sodium 134 mmol/L (136-145)
[2022-10-04] MEDS: Potassium Chloride 20 MEQ in Lactated Ringer's 1,000 ML IV SCH (05:36)
[2022-10-04] MEDS ORDERED: Acetaminophen 500 MG TAB ONE (06:45)
[2022-10-04] MEDS: Acetaminophen 500 MG TAB PO SCH ×3 (07:44→23:12)
[2022-10-04] MEDS ORDERED: Folic Acid 1 MG TAB ONE (08:35)
[2022-10-04] MEDS: Folic Acid 1 MG TAB PO SCH (08:38)
[2022-10-04] MEDS: Multivit, Therapeutic 1 TAB PO SCH (09:41)
[2022-10-04 09:43] VITALS: BMI 23.8
[2022-10-04] MEDS: Lorazepam 1 MG TAB PO PRN ×2 (15:17→20:36)
[2022-10-04] MEDS: Ondansetron PF 4 MG/2 ML Vial IVP PRN ×2 (15:18→20:37)
[2022-10-04] MEDS: Thiamine HCl 200 MG/2 ML VIAL SLOW IVP SCH (20:35)
[2022-10-04] MEDS: Polyethylene Glycol 3350 17 GM Packet PO SCH (20:37)
[2022-10-05] MEDS: Morphine 4 MG/ML VIAL SLOW IVP PRN ×7 (03:56→23:14)
[2022-10-05] MEDS: Lorazepam 1 MG TAB PO PRN ×2 (04:19→10:58)
[2022-10-05] MEDS: Ondansetron PF 4 MG/2 ML Vial IVP PRN ×2 (08:31→21:22)
[2022-10-05] MEDS: Multivit, Therapeutic 1 TAB PO SCH (08:32)
[2022-10-05] MEDS: Acetaminophen 500 MG TAB PO SCH ×3 (08:32→23:14)
[2022-10-05] MEDS: Folic Acid 1 MG TAB PO SCH (08:32)
[2022-10-05] MEDS ORDERED: Lorazepam 1 MG TAB PO PRN (20:51)
[2022-10-05] MEDS: Lorazepam 0.5 MG TAB PO SCH (21:07)
[2022-10-05] MEDS: Thiamine HCl 200 MG/2 ML VIAL SLOW IVP SCH (21:09)
[2022-10-05] MEDS: Polyethylene Glycol 3350 17 GM Packet PO SCH (21:09)
[2022-10-06] MEDS: Morphine 4 MG/ML VIAL SLOW IVP PRN ×8 (01:35→23:31)
[2022-10-06] MEDS: Lorazepam 0.5 MG TAB PO SCH ×3 (03:58→15:30)
[2022-10-06] MEDS: Ondansetron PF 4 MG/2 ML Vial IVP PRN (04:35)
[2022-10-06] MEDS: Acetaminophen 500 MG TAB PO SCH ×3 (07:41→23:18)
[2022-10-06] MEDS: Multivit, Therapeutic 1 TAB PO SCH (09:42)
[2022-10-06] MEDS: Folic Acid 1 MG TAB PO SCH (09:42)
[2022-10-06] MEDS ORDERED: Pantoprazole 40 MG VIAL IVP SCH (10:30)
[2022-10-06 14:08] LABS: Anion Gap 12 mmol/L (10-20); BUN (Urea Nitrogen) 5 mg/dL (8.9-20.6); Calc. Creatinine Clearance 158 mL/min (70-130); Calcium 9.4 mg/dL (7.8-10.44); Carbon Dioxide 27 mmol/L (22-29); Chloride 101 mmol/L (98-107); Estimated GFR 125; Glucose 101 mg/dL (70-105); Potassium 3.5 mmol/L (3.5-5.1); Sodium 136 mmol/L (136-145)
[2022-10-06] MEDS: Lactated Ringer's 1,000 ML IV SCH ×2 (14:24→21:49)
[2022-10-06] MEDS ORDERED: Potassium Chloride 20 MEQ in Premix Bag 1 BAG IVPB SCH (14:30)
[2022-10-06] MEDS ORDERED: Potassium Chloride 40 MEQ in Sodium Chloride 0.9% 500 ML IVPB SCH (15:30)
[2022-10-06] MEDS: Polyethylene Glycol 3350 17 GM Packet PO SCH (20:17)
[2022-10-06] MEDS ORDERED: Lorazepam 0.5 MG TAB PO PRN (20:51)
[2022-10-06] MEDS ORDERED: Thiamine 100 MG TAB PO SCH (21:00)
[2022-10-07] MEDS: Acetaminophen 500 MG TAB PO SCH ×3 (00:19→14:39)
[2022-10-07] MEDS: Morphine 4 MG/ML VIAL SLOW IVP PRN ×2 (02:55→08:13)
[2022-10-07] MEDS: Lactated Ringer's 1,000 ML IV SCH ×2 (06:19→11:24)
[2022-10-07 07:18] LABS: Anion Gap 12 mmol/L (10-20); BUN (Urea Nitrogen) 4 mg/dL (8.9-20.6); Calc. Creatinine Clearance 158 mL/min (70-130); Calcium 9.1 mg/dL (7.8-10.44); Carbon Dioxide 24 mmol/L (22-29); Chloride 103 mmol/L (98-107); Estimated GFR 125; Glucose 116 mg/dL (70-105); Magnesium 1.7 mg/dL (1.6-2.6); Potassium 3.6 mmol/L (3.5-5.1); Sodium 135 mmol/L (136-145)
[2022-10-07] MEDS: Folic Acid 1 MG TAB PO SCH (08:07)
[2022-10-07] MEDS: Multivit, Therapeutic 1 TAB PO SCH (08:07)
[2022-10-07] MEDS ORDERED: Pantoprazole 40 MG VIAL IVP SCH (09:00)
[2022-10-07] MEDS ORDERED: Magnesium 2 GM/50 ML(in water) 2 GM in Premix Bag 1 BAG IVPB SCH (09:00)
[2022-10-07] MEDS ORDERED: Milk Of Magnesia 30 ML UDCUP PO SCH (12:30)
[2022-10-07 16:17] VITALS: BP 121/85; TEMP 98.2
[2022-10-08] MEDS ORDERED: Milk Of Magnesia 30 ML UDCUP PO SCH (09:00)
== END 2022-10-07 16:20 | disposition home or self-care (01) | DRG 439 ==
LOC: ERS 16:58 → ERHOLD 18:56 → T4-A 10-04 14:59
PROVIDERS: ADMIT Student in an Organized Health Care Education/Training Program; ATTEND Family Medicine
DX: K85.20 Alcohol induced acute pancreatitis without necrosis or infection (principal); E87.1 Hypo-osmolality and hyponatremia; E87.6 Hypokalemia; F41.9 Anxiety disorder, unspecified; F17.210 Nicotine dependence, cigarettes, uncomplicated
CPT/HCPCS: 36415; 71045; 74177; 76705; 80048; 80053; 80061; 81003; 83605; 83690; 83735; 85025; 96374; C9113; J2270; J2272; J2405; J3411; J3475; J3480; J7030; J7120; Q9967